=== PATIENT | female | born 1970 | race Caucasian/White ===

== ENCOUNTER → 2016-06-23 17:07 | Emergency (ER) | payer OTHER ==
[~2016-06-23 17:07] MED LIST: CELEXA20 MG PO; LEXAPRO; NAPROXEN; OMEPRAZOLE40 M1 PO; PERCOCET 5/321 UDTAB PO; SKELAXIN; TRAZODONE; TRAZODONE HCL100 MG PO; ULTRACET TABLET1 TAB; ZESTORETIC 20-1 EACH PO
== END | disposition left against medical advice (07) ==
LOC: CED 17:07
DX: Z53.21 Procedure and treatment not carried out due to patient leaving prior to being seen by health care provider (principal)

== ENCOUNTER 2016-07-13 17:07 | Inpatient (IN) | payer OTHER ==
--- NOTE | ~2016-07-13 | CT2 ---
[facility] A Service of [facility] RADIOLOGY TEXT RESULTS PATIENT: SAILAJA ROJAS LOCATION: [facility] 46- : 71 UNIT #: [id number] AGE: [address]: Katelyn Washington MD SEX: F ORDER DR: [id number] [facility] [address]. [place], [place] [address] [id number] MR#: [id number] Acc #: [id number] NAME: SAILAJA ROJAS : 1970 SEX: F STUDY DATE/TIME: 07/13/2016 20:44 UNIT: CEDOF ROOM: [id number] STUDY DESCRIPTION: CT Abd and Pelv W Cont Attending Physician: Rod Lujan M.D. Ordering Physician: Kristopher Teixeira M.D. Primary Care Physician: Winsome Lujan Aprn MEDICAL IMAGING REPORT This report is preliminary unless electronic signature is present EXAM CT abdomen and pelvis with contrast HISTORY A 46-year-old female with abdominal pain starting this morning. Pain, in epigastric region. COMPARISON CT abdomen and pelvis 09/08/2014 FINDINGS Axial images form through the abdomen and pelvis following IV contrast. Multiplanar reconstructed images reviewed at a workstation. This CT exam was performed with one or more of the following radiation dose reduction techniques: automatic exposure control, adjustment of mA and/or kV according to patient size, and iterative reconstruction. FINDINGS Abdomen: Lung bases unremarkable. Diffuse fatty infiltration liver. Extensive peripancreatic inflammatory changes particularly about the head and body of the pancreas compatible acute pancreatitis. No evidence of pancreatic necrosis. No mass lesion identified. The spleen, kidneys and adrenal glands unremarkable. Moderate amount of edema within the anterior pararenal space particularly involving the right anterior pararenal space. Visualized GI tract unremarkable. Pelvis: The uterus absent. The bladder decompressed. The osseous structures remarkable for L5-S1 degenerative disc changes. Impression 1. CT findings compatible with acute pancreatitis predominantly [facility] A Service of [facility] RADIOLOGY TEXT RESULTS PATIENT: SAILAJA ROJAS LOCATION: [facility] 461- : 71 UNIT #: [id number] AGE: [address]: Katelyn Washington MD SEX: F ORDER DR: involving the head and uncinate process and body the pancreas with some acute peripancreatic fluid collections particularly involving the right anterior pararenal space. No evidence of a pancreatic necrosis. 2. Fatty infiltration of the liver. Dictated by... Felicitas Lugo M.D. THIS IS AN ELECTRONICALLY VERIFIED REPORT Felicitas Lugo M.D. at 07/16/2016 6:07 AM Jose Armando TD: 07/14/2016 00:34 JOB #: [id number] MEDICAL IMAGING REPORT Page 1 of 1 COPY
--- NOTE | ~2016-07-13 | DS ---
Unit #: [id number] #: [id number] Patient: SAILAJA ROJAS [id number] [address] [address] [id number] MR#: [id number] NAME: SAILAJA ROJAS ROOM: 461 Age: 46 Sex: F Admission Date: 07/13/2016 : 1970 Discharge Date: 07/16/2016 Attending Physician: Katelyn Washington M.D. Primary Care Physician: Winsome Lujan, Mel DISCHARGE SUMMARY PRINCIPAL DIAGNOSES 1. Alcohol-induced pancreatitis. 2. Hyponatremia secondary to a combination of mild syndrome of inappropriate antidiuretic hormone with dehydration. 3. Chronic alcohol abuse without evidence of withdrawal. 4. Hypokalemia. 5. Hypomagnesemia. 6. Hypocalcemia. 7. Mild alcoholic hepatitis. 8. Depression. 9. Tobaccoism. 10. Obesity. 11. Decreased urine output secondary to dehydration. 12. Mild protein malnutrition. 13. Hepatic steatosis. [facility] Beach - Urology. PROCEDURES CT scan of abdomen and pelvis with contrast on July 13, 2016, with acute pancreatitis involving the head and uncinate process and body of the pancreas. No evidence of pancreatic necrosis. Fatty infiltration of liver noted. CLINICAL HISTORY/HOSPITAL COURSE Ms. Rojas is a 46-year-old female who presents to the emergency department with complaints of abdominal pain. Please refer to H and P for further details. CT scan of the abdomen and pelvis revealed pancreatitis and lipase was found to be significantly elevated at almost 1900. The patient was subsequently admitted. The patient was made NPO, placed on IV fluids, antiemetics and pain medications. The following day, patient's lipase decreased significantly to 187. She was started on clears and advanced to a full liquid diet. She has been able to tolerate dye with only mild amount of pain and primarily most of her pain is with movement. I suspect it is muscular secondary to her associated nausea and vomiting. I am awaiting a repeat lipase this morning but, assuming that this is stable, I think she can be safely discharged home. The patient did develop some mild hyponatremia likely secondary to a combination of dehydration and her poor salt intake at baseline. Today, sodium is up to 131 and, without nausea or vomiting, I think again this Unit #: [id number] #: [id number] Patient: SAILAJA ROJAS can be followed up as an outpatient. I will note, patient is on CAROLEE inhibitor as an outpatient which could be a risk factor for pancreatitis. Her blood pressure here has been in the 120s off of the medication. Thus, I am going to hold it and can be reinitiated by her primary care provider if blood pressure becomes elevated again. We did discuss alcohol cessation and patient states she will no longer drink. The patient also had some hypocalcemia even with correction for albumin. I have placed her on supplements of calcium and this appears to be improving. DISCHARGE CONDITION Stable. DISCHARGE STATUS Discharge to home. DISCHARGE MEDICATIONS 1. Os-Serafin 500 plus D, one b.i.d. 2. Omeprazole 40 mg daily. 3. Percocet 5/325, one tablet p.o. q.6 hours p.r.n. for pain, number given 20. 4. Celexa 20 mg daily. 5. Trazodone 100 mg at bedtime. 6. Zestoretic 20/25 is currently being held. DISCHARGE INSTRUCTIONS The patient was instructed to follow a heart healthy diet. She can increase her activity as tolerated. To refrain from any tobacco or alcohol use. FOLLOWUP The patient will follow up with her primary care provider, Winsome Lujan, in two weeks. Can re-evaluate blood pressure at that time and perhaps recheck blood work just to ensure electrolytes have normalized. Dictated by... Katelyn Washington M.D. MARIBEL/tony TD: 07/18/2016 07:13 JOB #: [id number] Unit #: [id number] #: [id number] Patient: SAILAJA ROJAS DISCHARGE SUMMARY Page 1 of 1 X Katelyn Washington MD DISCHARGE SUMMARY
--- NOTE | ~2016-07-13 | HP ---
Unit #: [id number] #: [id number] Patient: SAILAJA ROJAS [id number] [address] [place], [place] [address] [id number] I MR#: [id number] NAME: SAILAJA ROJAS ROOM: 464 Age: 46 Sex: F Admission Date: 07/13/2016 : 1970 Attending Physician: Katelyn Washington M.D. Primary Care Physician: Winsome Lujan Aprn HISTORY AND PHYSICAL CHIEF COMPLAINT Abdominal pain, nausea, and vomiting. HISTORY OF PRESENT ILLNESS This is a 46-year-old female, who has history of hypertension, anxiety/depression, asthma, alcohol abuse. She presented to the emergency room with chief complaint of nausea, vomiting, abdominal pain. She has abdominal pain going off and on for [id number]-[id number] weeks, got worse today, 9/10, sharp, constant, she came to the ER, threw up seven times today. In the workup in the ER she was found to be acute pancreatitis with sodium 127, potassium 3.1, AST 60, ALT 52. CT scan consistent with acute pancreatitis. She was eventually admitted. She denies fever, chills, chest pain, diaphoresis, palpitations, or blood in the stool or any other complaint. PAST MEDICAL HISTORY 1. History of hypertension. 2. Anxiety/depression. 3. Asthma. 4. Tobacco abuse. 5. Alcohol abuse. PAST SURGICAL HISTORY 1. History of tubal ligation. 2. Left elbow surgery. 3. Back surgery. SOCIAL HISTORY She smoked one pack per day for twenty years. She drinks alcohol, half pint of vodka daily. FAMILY HISTORY Father with pancreatitis and mother with thyroid problems. REVIEW OF SYSTEMS Negative except for present in history of present illness. HOME MEDICATIONS Is the followin. Zestoretic 20/25 one tablet daily 2. Trazodone 100 mg at bedtime 3. Celexa 20 mg daily 4. Omeprazole 40 mg daily 5. Ventolin HFA two puffs q.6h p.r.n. Unit #: [id number] #: [id number] Patient: SAILAJA ROJAS PHYSICAL EXAMINATION GENERAL: Middle-aged female lying in the bed comfortably, currently not in any distress. She is alert, awake, and oriented x3, comfortable, not in any distress. VITAL SIGNS: Current vitals are the following, temperature 97.9, heart rate is 80, respiratory rate is 16, and blood pressure 80/50. HEENT EXAMINATION: Pupils equal reactive to light and accommodation. Head: Normocephalic and atraumatic. NECK: Supple. No jugular venous distention. HEART: S1 and S2, regular rate and rhythm. LUNGS: Clear to auscultation bilaterally. No rhonchi. No wheezing. ABDOMEN: Soft, diffuse tenderness, positive. EXTREMITIES: Inspection normal. No cyanosis, no clubbing, and no edema. NEUROLOGIC: Alert and oriented x4. Cranial nerves II through XII intact. No focal neurologic deficit. DIAGNOSTIC STUDIES LABORATORY: Laboratory workup is the following, UA is negative. Chemistry, sodium 127, potassium 3.1, chloride 91, glucose 147, BUN 12, creatinine 0.8. LFT, AST 63, ALT 52, lipase 1889. White count 11, hemoglobin 15, hematocrit 43, platelets 240. IMAGING: CT scan shows acute pancreatitis involving the head, uncinate process, and body of pancreas, no necrosis. Fatty infiltration. ASSESSMENT/PLAN 1. Acute pancreatitis, most likely secondary to alcohol abuse. She denies any history of pancreatitis in the past. Keep the patient n.p.o., IV fluids, pain control with Dilaudid. 2. Hypokalemia, replace, check magnesium level. 3. Alcoholic liver disease with abnormal AST and ALT. 4. History of hypertension. 5. Anxiety/depression. 6. (1) abuse. 7. Tobacco abuse. 8. Alcohol abuse, watch for withdrawals. 9. DVT prophylaxis, will place the patient on SCDs. Dictated by Jay Prince/peggy TD: 07/14/2016 08:53 JOB #: [id number] Unit #: [id number] #: [id number] Patient: SAILAJA ROJAS HISTORY AND PHYSICAL Page 1 of 1 X X HISTORY AND PHYSICAL
[~2016-07-13 17:07] MED LIST changes: -CELEXA20 MG PO; -OMEPRAZOLE40 M1 PO; -PERCOCET 5/321 UDTAB PO; -TRAZODONE HCL100 MG PO; -ZESTORETIC 20-1 EACH PO
[2016-07-13 18:18] LABS: BASOPHIL# 0.1 X10e3 (0-0.3); BASOPHIL% 1.1 % (0-2.5); EOSINOPHIL# 0.1 X10e3 (0-0.7); EOSINOPHIL% 0.5 % (0.0-7.0); HEMATOCRIT 43.1 % (35.0-45.0); HEMOGLOBIN 15.4 gm/dL (12.0-16.0); LYMPHOCYTE# 3.4 X10e3 (1.0-3.5); LYMPHOCYTE% 29.7 % (17.0-45.0); MEAN CELL VOLUME 93.3 FL (83-96); MEAN CORPUSCULAR HEMOGLOBIN 33.2 PG (28-34); MEAN CORPUSCULAR HGB CONC 35.6 g/dL (30-36); MEAN PLATELET VOLUME 7.6 FL (6.5-11.5); MONOCYTE% 8.5 % (3.0-12.0); NEUTROPHIL# 6.8 X10e3 (1.5-7.1); NEUTROPHIL% 60.2 % (40-75); PLATELET COUNT 240 X10e3 (140-420); RED BLOOD COUNT 4.62 X10e (3.90-5.30); RED CELL DISTRIBUTION WIDTH 12.2 % (11.0-15.5); WHITE BLOOD COUNT 11.4 X10e3 (4.0-10.5)
[2016-07-13 18:19] LABS: DIFF IND NO
[2016-07-13 18:40] LABS: ALBUMIN SERUM 4.2 g/dL (3.5-5.0); BILIRUBIN,TOTAL 0.4 mg/dL (0.2-2.0); CALCIUM SERUM 8.5 mg/dL (8.4-10.2); CREATININE SERUM 0.8 mg/dL (0.6-1.4); GLOM FILT RATE Estimated 89.1 mL/min (>60); POTASSIUM 3.1 mmol/L (3.5-5.1); PROTEIN TOTAL SERUM 6.9 g/dL (6.0-8.3)
[2016-07-13 18:41] LABS: BILIRUBIN,INDIRECT 0.4 mg/dL (0.0-0.9)
[2016-07-13 19:30] LABS: URINE SOURCE CLEAN CATCH
[2016-07-13 19:47] LABS: URINE APPEARANCE CLEAR; URINE BILIRUBIN NEG (NEG); URINE BLOOD 1+ (NEG); URINE COLOR YELLOW; URINE GLUCOSE NORM (NEG); URINE ICTOTEST NEG (NEG); URINE KETONE NEG (NEG); URINE LEUKOCYTE ESTERASE NEG (NEG); URINE NITRATE NEG (NEG); URINE PROTEIN NEG (NEG); URINE UROBILINOGEN NORM (NEG)
[2016-07-13 19:49] LABS: CULTURE INDICATED? NO; URBCS1 AUWI 0-2 /[HPF] (0-2); URINE SQUAMOUS EPITHELIAL CELL FEW /[HPF]; UWBCS1 AUWI 0-2 (0-5)
[2016-07-13] MEDS ORDERED: ZESTORETIC 20-1 EACH PO (21:35)
[2016-07-13] MEDS ORDERED: TRAZODONE HCL100 MG PO (21:36)
[2016-07-13] MEDS ORDERED: CELEXA20 MG PO (21:36)
[2016-07-13] MEDS ORDERED: OMEPRAZOLE40 M1 PO (21:37)
[2016-07-14 03:30] LABS: BASOPHIL% 0.2 % (0-2.5); HEMATOCRIT 43.8 % (35.0-45.0); HEMOGLOBIN 14.8 gm/dL (12.0-16.0); LYMPHOCYTE# 0.9 X10e3 (1.0-3.5); LYMPHOCYTE% 5.7 % (17.0-45.0); MEAN CELL VOLUME 94.8 FL (83-96); MEAN CORPUSCULAR HEMOGLOBIN 31.9 PG (28-34); MEAN CORPUSCULAR HGB CONC 33.7 g/dL (30-36); MEAN PLATELET VOLUME 7.5 FL (6.5-11.5); MONOCYTE# 0.9 X10e3 (0-1.0); MONOCYTE% 5.6 % (3.0-12.0); NEUTROPHIL% 88.5 % (40-75); PLATELET COUNT 192 X10e3 (140-420); RED BLOOD COUNT 4.62 X10e (3.90-5.30); RED CELL DISTRIBUTION WIDTH 12.6 % (11.0-15.5); WHITE BLOOD COUNT 15.8 X10e3 (4.0-10.5)
[2016-07-14 03:37] LABS: DIFF IND YES
[2016-07-14 04:08] LABS: PLATELET ESTIMATE NORMAL (NORMAL)
[2016-07-14 04:21] LABS: ALBUMIN SERUM 3.8 g/dL (3.5-5.0); BILIRUBIN,TOTAL 1.1 mg/dL (0.2-2.0); BUN/CREATININE RATIO 13.75; CALCIUM SERUM 7.5 mg/dL (8.4-10.2); CREATININE SERUM 0.8 mg/dL (0.6-1.4); GLOM FILT RATE Estimated 89.1 mL/min (>60); MAGNESIUM 1.3 mg/dL (1.6-3.0); POTASSIUM 3.6 mmol/L (3.5-5.1); PROTEIN TOTAL SERUM 6.3 g/dL (6.0-8.3)
[2016-07-15 02:43] LABS: BASOPHIL% 0.1 % (0-2.5); EOSINOPHIL% 0.1 % (0.0-7.0); HEMATOCRIT 41.5 % (35.0-45.0); HEMOGLOBIN 13.9 gm/dL (12.0-16.0); LYMPHOCYTE# 0.9 X10e3 (1.0-3.5); LYMPHOCYTE% 6.3 % (17.0-45.0); MEAN CELL VOLUME 95.8 FL (83-96); MEAN CORPUSCULAR HEMOGLOBIN 32.2 PG (28-34); MEAN CORPUSCULAR HGB CONC 33.6 g/dL (30-36); MEAN PLATELET VOLUME 7.9 FL (6.5-11.5); MONOCYTE# 0.9 X10e3 (0-1.0); MONOCYTE% 5.8 % (3.0-12.0); NEUTROPHIL# 13.1 X10e3 (1.5-7.1); NEUTROPHIL% 87.7 % (40-75); PLATELET COUNT 166 X10e3 (140-420); RED BLOOD COUNT 4.34 X10e (3.90-5.30); RED CELL DISTRIBUTION WIDTH 12.7 % (11.0-15.5)
[2016-07-15 02:44] LABS: DIFF IND NO
[2016-07-15 03:21] LABS: ALBUMIN SERUM 3.1 g/dL (3.5-5.0); BILIRUBIN,TOTAL 1.5 mg/dL (0.2-2.0); CALCIUM SERUM 7.1 mg/dL (8.4-10.2); MAGNESIUM 1.7 mg/dL (1.6-3.0); PHOSPHOROUS 2.3 mg/dL (2.5-4.6); POTASSIUM 4.1 mmol/L (3.5-5.1); PROTEIN TOTAL SERUM 5.8 g/dL (6.0-8.3)
[2016-07-15 14:24] LABS: BUN/CREATININE RATIO 8.75; CALCIUM SERUM 7.2 mg/dL (8.4-10.2); CREATININE SERUM 0.8 mg/dL (0.6-1.4); GLOM FILT RATE Estimated 89.1 mL/min (>60)
[2016-07-16 04:23] LABS: CALCIUM SERUM 7.9 mg/dL (8.4-10.2); CARBON DIOXIDE 26 mmol/L (22-31); CHLORIDE 97 mmol/L (100-111); CREATININE SERUM 0.6 mg/dL (0.6-1.4); GLOM FILT RATE Estimated 110.1 mL/min (>60); GLUCOSE FASTING 116 mg/dL (70-110); SODIUM 131 mmol/L (135-145)
[2016-07-16 04:24] LABS: BLOOD UREA NITROGEN <5 mg/dL (9-23); BUN/CREATININE RATIO 8.33
[2016-07-16] MEDS ORDERED: PERCOCET 5/321 UDTAB PO (09:24)
== END 2016-07-16 10:20 | disposition home or self-care (01) | DRG 439 ==
LOC: CED 17:07 → CEDOF 23:15 → C4C 23:15
PROVIDERS: Internal Medicine
DX: K85.20 Alcohol induced acute pancreatitis without necrosis or infection (principal); E44.1 Mild protein-calorie malnutrition; E22.2 Syndrome of inappropriate secretion of antidiuretic hormone; K70.10 Alcoholic hepatitis without ascites; K76.0 Fatty (change of) liver, not elsewhere classified; E83.42 Hypomagnesemia; I10 Essential (primary) hypertension; F41.9 Anxiety disorder, unspecified; F32.9 Major depressive disorder, single episode, unspecified; J45.909 Unspecified asthma, uncomplicated; F17.210 Nicotine dependence, cigarettes, uncomplicated; F10.10 Alcohol abuse, uncomplicated; E87.6 Hypokalemia; K70.9 Alcoholic liver disease, unspecified; E66.9 Obesity, unspecified; E86.0 Dehydration; E83.51 Hypocalcemia; Z71.41 Alcohol abuse counseling and surveillance of alcoholic; Z68.32 Body mass index [BMI] 32.0-32.9, adult
CPT/HCPCS: 36415; 74177; 80048; 80053; 80061; 80076; 81003; 82150; 83690; 83735; 83935; 84100; 85025; 94640; 94760; 96361; 96374; 96375; 99285; J0610; J1170; J2270; J2405; J3475; Q9967